=== PATIENT | female | born 1955 | race Caucasian/White ===

== ENCOUNTER → 2020-09-29 | Outpatient (CLI) | payer MEDICARE, OTHER ==
--- NOTE | 2020-09-29 12:44 | CT ---
EXAMINATION TYPE: CT knee RT wo con DATE OF EXAM: 09/29/2020 COMPARISON: None HISTORY: Other fracture of upper end of right tibia. CT DLP: 429.5 mGycm Automated exposure control for dose reduction was used. Unenhanced CT of the right knee was performed with bone and soft tissue settings are submitted. 3-D reconstruction was obtained at a separate work station. FINDINGS: There is minimally displaced and minimally depressed fracture involving the posterior aspect of the l ateral tibial plateau. Fracture depression is estimated at approximately 2 mm with displacement of th e 0.5 mm there is no evidence for fracture extension into the intercondylar region or the medial tibi al plateau. No additional fractures are seen. There is mild soft tissue swelling noted. No sizable hermelindo int effusion. IMPRESSION: There is minimally displaced and minimally depressed fracture involving the posterior aspect of the l ateral tibial plateau.
== END | disposition home or self-care (01) ==
LOC: RADCTMAIN 11:47
PROVIDERS: ATTEND Orthopaedic Surgery
DX: S82.141A Displaced bicondylar fracture of right tibia, initial encounter for closed fracture (principal)

== ENCOUNTER → 2021-09-28 | Outpatient (CLI) | payer MEDICARE, OTHER ==
--- NOTE | 2021-09-29 07:27 | CT ---
EXAMINATION TYPE: CT abdomen pelvis wo con DATE OF EXAM: 09/28/2021 HISTORY: MELENA, HEMATURIA CT DLP: 746.1 mGycm. Automated Exposure Control for Dose Reduction was Utilized. TECHNIQUE: CT scan of the abdomen and pelvis is performed without oral or IV contrast. COMPARISON: NONE FINDINGS: Within the limitations of a non-contrast study, the following observations are made. LUNG BASES: Mild to moderate left greater than right bibasilar linear scarring and/or atelectasis. LIVER/GB: No significant abnormality is appreciated. PANCREAS: No significant abnormality is seen. SPLEEN: No significant abnormality is seen. ADRENALS: No significant abnormality is seen. KIDNEYS: No renal stones or hydronephrosis is evident bilaterally. No intraluminal calculus in the bl adder. BOWEL: Slightly suboptimal evaluation of bowel without enteric contrast. Gastric fundus poorly disten ded making evaluation suboptimal. Wall thickening at this level cannot be excluded. No suspicious sma ll or large bowel dilatation. Normal-appearing appendix seen from the cecum in the right pelvis. Ther e are diverticula beginning in the distal left colon extending through the sigmoid colon. No CT evide nce for acute diverticulitis. GENITAL ORGANS: Uterus surgically absent or markedly atrophic. LYMPH NODES: No greater than 1cm abdominal or pelvic lymph nodes are appreciated. OSSEOUS STRUCTURES: Exaggerated curvature on sagittal images. [id number] multilevel spurring an d disc space narrowing in the lower thoracic spine. There is moderate spurring and axial joint space loss in both hips. Facet arthropathy lower lumbar levels. OTHER: No significant additional abnormality is seen. IMPRESSION: 1. Source of hematuria not identified. If symptoms persist further investigation with CT urogram woul d be warranted. 2. Sigmoid colonic diverticulosis without CT evidence for acute diverticulitis. Possible fundal gastr itis. Correlate clinically. Consider endoscopy evaluation given patient's symptoms of melena.
== END | disposition home or self-care (01) ==
LOC: RADCTMAIN 17:07
PROVIDERS: ATTEND Internal Medicine
DX: K57.30 Diverticulosis of large intestine without perforation or abscess without bleeding (principal); R31.9 Hematuria, unspecified
CPT/HCPCS: 74176

== ENCOUNTER → 2022-10-02 | Outpatient (CLI) | payer MEDICARE, OTHER ==
--- NOTE | 2022-10-02 17:50 | US ---
EXAMINATION TYPE: US bladder DATE OF EXAM: 10/02/2022 COMPARISON: NONE CLINICAL INDICATION: Female, 67 years old with history of R39.82 CHRONIC BLADDER PAIN R39.11 R39.82 H ESITANCY OF MICTU; frequent urination. TECHNIQUE: Multiple sonographic images of the bladder are obtained. FINDINGS: No gross abnormality of the initially urine distended bladder. EXAM MEASUREMENTS: Post Void Residual Volume: 33.6 mL Color Doppler performed to assess ureteral jets. Bilateral Jets seen: Right only Normal Post Void Residual (less than 50ml): Yes IMPRESSION: Increased postvoid bladder volume of 34 mL. While this is increased, it still falls within acceptable limits.
== END | disposition home or self-care (01) ==
LOC: RADUSWWP 14:54
PROVIDERS: ATTEND Family Medicine
DX: R39.82 Chronic bladder pain (principal); R39.11 Hesitancy of micturition
CPT/HCPCS: 76857

== ENCOUNTER 2024-06-11 06:47 | Day surgery (SDC) | payer MEDICARE, OTHER ==
[~2024-06-11 06:47] MED LIST: LIDOCAINE 1% (10MG/ML) FOR IV START INTRADERMA PRN
[2024-06-11 07:20] VITALS: TEMP 97.4
[2024-06-11] MEDS: IV FLUID CONTINUATION 1,000 ML IV ONE (07:20)
[2024-06-11] MEDS: LACTATED RINGERS 1,000 ML IV SCH (07:21)
[2024-06-11] MEDS ORDERED: LIDOCAINE 2% (PF) 20 MG/ML 5 ML VIAL ONE (07:30)
[2024-06-11] MEDS ORDERED: PROPOFOL 10 MG/ML 20 ML VIAL IV ONE (07:30)
--- NOTE | 2024-06-11 07:38 | P.GSHP ---
History of Present Illness H&P Date: 06/11/24 CHIEF COMPLAINT: Esophageal stricture HISTORY OF PRESENT ILLNESS: The patient is a 69-year-old female who presents reports dysphagia. Upper endoscopy was offered for further evaluation and management. PAST MEDICAL HISTORY: Please see list. PAST SURGICAL HISTORY: Please see list. MEDICATIONS: Please see list. ALLERGIES: Please see list. SOCIAL HISTORY: No illicit drug use FAMILY HISTORY: No reports of Crohn disease or ulcerative colitis. REVIEW OF ORGAN SYSTEMS: CONSTITUTIONAL: No reports of fevers or chills. GI: Denies any blood in stools or constipation. PHYSICAL EXAM: VITAL SIGNS: Stable GENERAL: Well-developed and pleasant in no acute distress. HEENT: No scleral icterus. Extraocular movements grossly intact. Moist buccal mucosa. NECK: Supple without lymphadenopathy. CHEST: Unlabored respirations. Equal bilateral excursions. CARDIOVASCULAR: Regular rate and rhythm. Distal 2+ pulses. ABDOMEN: Soft, nondistended. MUSCULOSKELETAL: No clubbing, cyanosis, or edema. ASSESSMENT: 1. Esophageal stricture PLAN: 1. Recommend proceeding with an upper endoscopy with rigid dilators. Past Medical History Past Medical History: GERD/Reflux, Hyperlipidemia Additional Past Medical History / Comment(s): STATES HAS HAD BLOOD IN URINE, AND TROUBLE URINATING, ABDOMINAL PAIN, PELVIC PAIN, recent shortness of breath, prurigo nodularis History of Any Multi-Drug Resistant Organisms: None Reported Past Surgical History: Hysterectomy, Tonsillectomy Past Anesthesia/Blood Transfusion Reactions: No Reported Reaction Smoking Status: Never smoker - Past Family History Mother Family Medical History: Cancer Additional Family Medical History / Comment(s): BREAST Medications and Allergies Home Medications Medication Instructions Recorded Confirmed Type Ferrous Sulfate [Iron (65 MG 325 mg PO DAILY 12/09/15 06/04/24 History Elemental)] Glucosamine Sulfate 500 mg PO DAILY 12/09/15 06/04/24 History L.acidoph,Paracasei, B.lactis 1 tab PO DAILY 12/09/15 06/04/24 History [Probiotic] Multivitamins, Thera [Multivitamin] 1 tab PO DAILY 12/09/15 06/04/24 History Bethanechol Chloride [Urecholine] 1 tab PO DAILY 06/04/24 06/04/24 History Omeprazole 20 mg PO DAILY 06/04/24 06/04/24 History Rosuvastatin Calcium [Crestor] 5 mg PO DAILY 06/04/24 06/04/24 History Allergies Allergy/AdvReac Type Severity Reaction Status Date / Time No Known Allergies Allergy Verified 06/04/24 17:14 Surgical - Exam Vital Signs Temp Pulse Resp BP Pulse Ox 97.4 F L 90 18 131/70 97 06/11/24 07:17 06/11/24 07:17 06/11/24 07:17 06/11/24 07:17 06/11/24 07:17
--- NOTE | 2024-06-11 08:00 | P.PCN ---
Date of Procedure: 06/11/24 Description of Procedure: PREOPERATIVE DIAGNOSIS: Dysphagia, upper esophageal Gastroesophageal reflux disease Morbid obesity due to excess calories Atypical chest pain POSTOPERATIVE DIAGNOSIS: Dysphagia, upper esophageal Gastroesophageal reflux disease Morbid obesity due to excess calories Esophageal stricture Diaphragmatic hiatal hernia Presbyesophagus OPERATION: Esophagogastrojejunoscopy with rigid dilatation, 57 Fr SURGEON: Adilene Kulkarni MD ANESTHESIA: MAC. INDICATIONS: The patient is a 69-year-old female who presents with a history of dysphagia of the upper esophagus including the chest. She reports atypical chest pain. Benefits and risks of the procedure were described. Informed consent was obtained. DESCRIPTION: The patient was brought into the endoscopy suite and laid in the left lateral decubitus position. After a timeout was confirmed, the procedure was initiated. An Olympus gastroscope was passed along the posterior oropharynx down to the distal esophagus where the squamocolumnar junction was unremarkable. The gastric pouch was entered. Additional findings below. A guidewire was placed through the scope with insertion of an [place] rigid dilator. Rigid dilator 57-[place] placed for dilation performed for 2 minutes. The guidewire was removed. The scope was reinserted and advanced to 60 cm from the incisors along the Pina limb. No gastrojejunal ulcers were identified. The patient tolerated the procedure well. FINDINGS: Upper esophageal stenosis addressed with rigid dilator, 57-[place] No chronic gastrojejunal ulceration encountered. Diaphragmatic hiatal hernia, 3 cm LA grade B erosive esophagitis Squamocolumnar junction at 36 cm from the incisors Diaphragmatic hiatus at 39 cm from the incisors Tertiary contractions consistent with presbyesophagus RECOMMENDATIONS: Increase omeprazole to 40 mg daily for 2 weeks Warm beverages prior to eating Drink room temperature water Avoid cold beverages and foods Plan - Discharge Summary Discharge Rx Participant: No New Discharge Prescriptions: New Omeprazole [PriLOSEC] 40 mg PO DAILY #14 cap Continue Multivitamins, Thera [Multivitamin (formulary)] 1 tab PO DAILY L.acidoph,Paracasei, B.lactis [Probiotic] 1 tab PO DAILY Glucosamine Sulfate 500 mg PO DAILY Ferrous Sulfate [Iron (65 MG Elemental)] 325 mg PO DAILY Rosuvastatin Calcium [Crestor] 5 mg PO DAILY Bethanechol Chloride [Urecholine] 1 tab PO DAILY Discontinued Omeprazole 20 mg PO DAILY Discharge Medication List Ferrous Sulfate [Iron (65 MG Elemental)] 325 mg PO DAILY 12/09/15 [History] Glucosamine Sulfate 500 mg PO DAILY 12/09/15 [History] L.acidoph,Paracasei, B.lactis [Probiotic] 1 tab PO DAILY 12/09/15 [History] Multivitamins, Thera [Multivitamin (formulary)] 1 tab PO DAILY 12/09/15 [History] Bethanechol Chloride [Urecholine] 1 tab PO DAILY 06/04/24 [History] Rosuvastatin Calcium [Crestor] 5 mg PO DAILY 06/04/24 [History] Omeprazole [PriLOSEC] 40 mg PO DAILY #14 cap 06/11/24 [Rx] Follow up Appointment(s)/Referral(s): Adilene Kulkarni MD [STAFF PHYSICIAN] - 06/30/24 2:45 pm Patient Instructions/Handouts: Esophageal Dilation (DC) Activity/Diet/Wound Care/Special Instructions: Drink room temperature water. Drink warm beverages prior to eating. Discharge Disposition: HOME SELF-CARE
[2024-06-11 08:31] VITALS: BP 122/66; PULSE 71; RESP 18
== END 2024-06-11 09:05 | disposition home or self-care (01) ==
LOC: ORWHC2ENDO 06:47
PROVIDERS: ATTEND Surgery Plastic and Reconstructive Surgery
DX: K22.2 Esophageal obstruction (principal); K21.00 Gastro-esophageal reflux disease with esophagitis, without bleeding; R13.10 Dysphagia, unspecified; K44.9 Diaphragmatic hernia without obstruction or gangrene; K22.89 Other specified disease of esophagus
CPT/HCPCS: 43249; J2704; J2003